=== PATIENT | female | born 1945 | race Caucasian/White ===

== ENCOUNTER 2020-03-20 10:10 | Emergency (ER) | payer MEDICARE, SELFPAY ==
[2020-03-20 10:23] VITALS: BP 121/58; PULSE 72; RESP 18; TEMP 36.4; O2SAT 94; BMI 27.6
--- NOTE | 2020-03-20 11:59 | ED.ABDPAIN ---
HPI - Abdominal Pain General Chief Complaint: Abdominal Pain Stated Complaint: side pain Time Seen by Provider: 03/20/20 11:59 Source: patient Mode of arrival: ambulatory Limitations: no limitations History of Present Illness HPI narrative: This is a 74-year-old female with past medical history significant for coronary artery disease, status post aortic valve replacement, status post coronary artery bypass graft, hypothyroidism, status post aortic aneurysm repair who has a pacemaker, diverticular disease with history of GI bleeds presents with complaint of right-sided abdominal pain ongoing for past 2 days. States feels similar to prior diverticular infection states she want to come in earlier to catch her ?early?. States in the past she has had GI bleeds with this however she does not have any bleeding, dark/black stools. Related Data Previous Rx's Medication Instructions Recorded amoxicillin-pot clavulanate 1 tab PO Q12H #14 tab 03/20/20 [Augmentin] Allergies Allergy/AdvReac Type Severity Reaction Status Date / Time Iodinated Contrast Media Allergy Intermediate COUGH Unverified 12/10/19 16:07 [IVP DYE] oxycodone [OXYCODONE] AdvReac Mild DIZZINESS Unverified 12/10/19 16:07 Review of Systems Review of Systems Constitutional: No Weight loss, No Fever, No Chills, No Night Sweats, No Fatigue, No Malaise ENT/Mouth: No Hearing loss, No Ear Pain, No Nasal Congestion, No Sinus Pain, No Hoarseness, No sore throat, No Rhinorrhea, No Swallowing Difficulty Eyes: No Eye Pain, No Swelling, No Redness, No Foreign Body, No Discharge, No Vision Changes Cardiovascular: No Chest Pain, No SOB, No Dyspnea on Exertion, No Orthopnea, No Edema, No Palpitations Respiratory: No Cough, No Sputum, No Wheezing, No Smoke Exposure, No Dyspnea Gastrointestinal: No Nausea, No Vomiting, No Diarrhea, No Constipation, + abdominal Pain, No Hematochezia, No Melena Genitourinary: no irregular bleeding, No Dysuria, No Urinary Frequency, No Hematuria, No Urinary Incontinence, No Urgency, No Flank Pain Musculoskeletal: No joint pain, No Myalgias, No Joint Swelling Skin: No Skin Lesions, No rash Neuro: No Weakness, No Numbness, No Paresthesias, No Loss of Consciousness, No Dizziness, No Headache Psych: No Social Issues Heme/Lymph: No Bruising, No Bleeding,No Lymphadenopathy Endocrine: No Polyuria, No Polydipsia, No Temperature Intolerance Yes all other systems are reviewed and are negative Physical Exam Vital Signs: Vital Signs: Last Vital Signs Temp 97.5 F 03/20/20 10:23 Pulse 72 03/20/20 10:23 Resp 16 03/20/20 16:15 BP 121/58 L 03/20/20 10:23 Pulse Ox 94 03/20/20 10:23 Body Mass Index 27.6 Reviewed Const: General: cooperative and healthy appearing; No acute distress or intoxicated appearing Nutritional Appearance: average body habitus Orientation/consciousness: patient oriented x3 HENMT: Head: Yes normal to inspection Ears: hearing grossly normal bilaterally Eyes: General: appearance normal, both eyes and all related structures Visual Torres: normal visual torres by confrontation Neck: Neck: Yes normal visual inspection, No positive Brudzinski's sign, No positive Kernig's sign and No tender Thyroid: Thyroid normal Chest: Chest palpation & inspection: normal inspection of the chest Resp: Effort & Inspection: normal respiratory effort Auscultation: clear to auscultation bilaterally Cardio: Jugular venous distension: no JVD Rhythm: regular rhythm Heart sounds: S1 normal heart sound present and S2 normal heart sound present GI: Inspection: Yes normal to inspection Percussion: Yes normal to percussion Auscultation: normal bowel sounds : General: Yes no CVA tenderness Back/Spine/Pelvis: Back: no CVA tenderness Skin: General skin exam: no rashes or lesions noted Neuro: General: patient oriented x3 Extrem: General: Yes normal to inspection Course Course Course Narrative: Labs show stable H&H. Electrolytes without significant abnormality. Initial lactic acid was 3.5 this is likely secondary to draw air as repeat was within normal limits. CTA of the abdomen did not show any change of the prior abdominal aneurysm. Diverticulosis without diverticulitis. Given her pain question early is requesting antibiotics for home. Will go ahead and give her 7 days of Augmentin with close outpatient follow-up. Patient will nontoxic appearing. Abdominal exam is reassuring. Will be discharged with precautions follow up instructions. Stable for discharge. MDM - Abdominal Pain MDM Narrative Medical decision making narrative: Will check labs, UA, occult stool and check for COVID-19. Given her complicated history will do CT scan of the abdomen and pelvis. Differential Diagnosis Differential diagnosis: Likely abdominal pain, aortic dissection and diverticulitis; Unlikely acute appendicitis, bowel perforation, calculus of kidney, constipation, endometriosis, gastroenteritis, mesenteric ischemia, ovarian cyst, pancreatitis, peptic ulcer disease, renal colic and small bowel obstruction Medical Records Attestation: I reviewed the patient's medical records. Medical records narrative: HPI from previous admission as well as discharge reviewed from 06/25/2019 Safe discharge diagnosis aortic dissection thracoabdominal, diverticulosis, colitis, lower GI bleed, supratherapeutic INR. Lab Data Attestation: I reviewed the patient's lab results. Result diagrams: 03/20/20 12:16 03/20/20 12:16 Labs: Lab Results 03/20/20 03/20/20 03/20/20 Range/Units 12:16 12:16 12:16 WBC 10.7 (4.8-10.8) X10*3/uL RBC 4.40 (4.20-5.50) X10*6/uL Hgb 11.6 L (12.0-16.0) g/dl Hct 38.0 (37-47) % MCV 86.4 (80-98) fL MCH 26.4 L (27.0-33.0) pg MCHC 30.5 L (31.0-35.0) g/dl RDW 15.6 (11.0-16.0) % Plt Count 264 (160-400) X10*3/uL MPV 9.4 (9.4-12.3) fL Immature Gran % (Auto) 0.4 (0.0-0.4) % Neut % (Auto) 69.9 (45-73) % Lymph % (Auto) 22.3 (20-40) % [place] % (Auto) 6.3 (2-11) % Eos % (Auto) 0.8 (0-4) % Baso % (Auto) 0.3 (0-2) % Lymph # (Auto) 2.4 (1.2-4.9) X10*3/uL [place] # (Auto) 0.7 (0.1-1.2) X10*3/uL Eos # (Auto) 0.1 (0.0-0.4) X10*3/uL Baso # (Auto) 0.0 (0.0-0.2) X10*3/uL Abs Immat Gran (auto) 0.04 H (0.00-0.03) X10*3/uL Absolute Neuts (auto) 7.5 (2.0-8.3) X10*3/uL Absolute Nucleated RBC 0.000 (0.0-0.012) X10*3/uL Nucleated RBC % (auto) 0.0 (0.0-0.2) /100WBC PT 35.2 H (10.8-13.0) SEC INR 2.9 H (0.9-1.1) APTT 42.5 H (24.1-38.0) SEC Sodium 140 (135-145) mmol/L Potassium 4.5 (3.3-5.1) mmol/l Chloride 100 (96-108) mmol/L Carbon Dioxide 28 (22-29) mmol/L Anion Gap 17 (12-20) BUN 16 (9-16) mg/dL Creatinine 0.93 (0.5-1.4) mg/dL Estim Creat Clear Calc 58.0 Estimated GFR 59 Random Glucose 114 (60-115) mg/dL Lactic Acid (0.5-2.0) mmol/L Lactic Acid Fup @ 2Hr (0.5-2.0) mmol/L Calcium 9.2 (8.4-10.2) mg/dL Total Bilirubin 0.4 (0.0-1.0) mg/dL AST 21 (5-31) U/L ALT 14 (0-31) U/L Alkaline Phosphatase 71 (39-117) U/L Total Protein 7.4 (6.5-8.0) g/dL Albumin 4.2 (3.5-5.0) g/dL Urine Color Urine Appearance Urine pH (5.0-8.0) Ur Specific [place] (1.005-1.025) Urine Protein (NEG-TRACE) MG/DL Urine Glucose (UA) (NEG) MG/DL Urine Ketones (NEG) MG/DL Urine Blood (NEG) Urine Nitrite (NEG) Ur Leukocyte Esterase (NEG) Urine RBC (0) /HPF Urine WBC (0-4) /HPF Ur Squamous Epith Cells /LPF Urine Bacteria /LPF Coronavirus (PCR) (Negative) Influenza Type A (PCR) (Negative) Influenza Type B (PCR) (Negative) RSV RNA Qual (PCR) (Negative) 03/20/20 03/20/20 03/20/20 Range/Units 12:16 12:16 16:18 WBC (4.8-10.8) X10*3/uL RBC (4.20-5.50) X10*6/uL Hgb (12.0-16.0) g/dl Hct (37-47) % MCV (80-98) fL MCH (27.0-33.0) pg MCHC (31.0-35.0) g/dl RDW (11.0-16.0) % Plt Count (160-400) X10*3/uL MPV (9.4-12.3) fL Immature Gran % (Auto) (0.0-0.4) % Neut % (Auto) (45-73) % Lymph % (Auto) (20-40) % [place] % (Auto) (2-11) % Eos % (Auto) (0-4) % Baso % (Auto) (0-2) % Lymph # (Auto) (1.2-4.9) X10*3/uL [place] # (Auto) (0.1-1.2) X10*3/uL Eos # (Auto) (0.0-0.4) X10*3/uL Baso # (Auto) (0.0-0.2) X10*3/uL Abs Immat Gran (auto) (0.00-0.03) X10*3/uL Absolute Neuts (auto) (2.0-8.3) X10*3/uL Absolute Nucleated RBC (0.0-0.012) X10*3/uL Nucleated RBC % (auto) (0.0-0.2) /100WBC PT (10.8-13.0) SEC INR (0.9-1.1) APTT (24.1-38.0) SEC Sodium (135-145) mmol/L Potassium (3.3-5.1) mmol/l Chloride (96-108) mmol/L Carbon Dioxide (22-29) mmol/L Anion Gap (12-20) BUN (9-16) mg/dL Creatinine (0.5-1.4) mg/dL Estim Creat Clear Calc Estimated GFR Random Glucose (60-115) mg/dL Lactic Acid 3.5 H* (0.5-2.0) mmol/L Lactic Acid Fup @ 2Hr 1.6 (0.5-2.0) mmol/L Calcium (8.4-10.2) mg/dL Total Bilirubin (0.0-1.0) mg/dL AST (5-31) U/L ALT (0-31) U/L Alkaline Phosphatase (39-117) U/L Total Protein (6.5-8.0) g/dL Albumin (3.5-5.0) g/dL Urine Color Urine Appearance Urine pH (5.0-8.0) Ur Specific [place] (1.005-1.025) Urine Protein (NEG-TRACE) MG/DL Urine Glucose (UA) (NEG) MG/DL Urine Ketones (NEG) MG/DL Urine Blood (NEG) Urine Nitrite (NEG) Ur Leukocyte Esterase (NEG) Urine RBC (0) /HPF Urine WBC (0-4) /HPF Ur Squamous Epith Cells /LPF Urine Bacteria /LPF Coronavirus (PCR) NEGATIVE (Negative) Influenza Type A (PCR) NEGATIVE (Negative) Influenza Type B (PCR) NEGATIVE (Negative) RSV RNA Qual (PCR) NEGATIVE (Negative) 03/20/20 Range/Units 16:19 WBC (4.8-10.8) X10*3/uL RBC (4.20-5.50) X10*6/uL Hgb (12.0-16.0) g/dl Hct (37-47) % MCV (80-98) fL MCH (27.0-33.0) pg MCHC (31.0-35.0) g/dl RDW (11.0-16.0) % Plt Count (160-400) X10*3/uL MPV (9.4-12.3) fL Immature Gran % (Auto) (0.0-0.4) % Neut % (Auto) (45-73) % Lymph % (Auto) (20-40) % [place] % (Auto) (2-11) % Eos % (Auto) (0-4) % Baso % (Auto) (0-2) % Lymph # (Auto) (1.2-4.9) X10*3/uL [place] # (Auto) (0.1-1.2) X10*3/uL Eos # (Auto) (0.0-0.4) X10*3/uL Baso # (Auto) (0.0-0.2) X10*3/uL Abs Immat Gran (auto) (0.00-0.03) X10*3/uL Absolute Neuts (auto) (2.0-8.3) X10*3/uL Absolute Nucleated RBC (0.0-0.012) X10*3/uL Nucleated RBC % (auto) (0.0-0.2) /100WBC PT (10.8-13.0) SEC INR (0.9-1.1) APTT (24.1-38.0) SEC Sodium (135-145) mmol/L Potassium (3.3-5.1) mmol/l Chloride (96-108) mmol/L Carbon Dioxide (22-29) mmol/L Anion Gap (12-20) BUN (9-16) mg/dL Creatinine (0.5-1.4) mg/dL Estim Creat Clear Calc Estimated GFR Random Glucose (60-115) mg/dL Lactic Acid (0.5-2.0) mmol/L Lactic Acid Fup @ 2Hr (0.5-2.0) mmol/L Calcium (8.4-10.2) mg/dL Total Bilirubin (0.0-1.0) mg/dL AST (5-31) U/L ALT (0-31) U/L Alkaline Phosphatase (39-117) U/L Total Protein (6.5-8.0) g/dL Albumin (3.5-5.0) g/dL Urine Color YELLOW Urine Appearance CLEAR Urine pH 6.5 (5.0-8.0) Ur Specific [place] <= 1.005 (1.005-1.025) Urine Protein NEG (NEG-TRACE) MG/DL Urine Glucose (UA) NEG (NEG) MG/DL Urine Ketones 15 (NEG) MG/DL Urine Blood 1+ H (NEG) Urine Nitrite NEG (NEG) Ur Leukocyte Esterase NEG (NEG) Urine RBC 0-2 (0) /HPF Urine WBC 0 (0-4) /HPF Ur Squamous Epith Cells NONE /LPF Urine Bacteria NONE /LPF Coronavirus (PCR) (Negative) Influenza Type A (PCR) (Negative) Influenza Type B (PCR) (Negative) RSV RNA Qual (PCR) (Negative) Discharge Plan Discharge Clinical Impression: Diverticulosis Patient Disposition: Home, Self-Care Instructions: Diverticulosis (ED), Diverticulitis Diet (ED) Additional Instructions: Drink plenty fluids [place] diet Take medication prescribed Return if any concerns or worsening symptoms as discussed including worsening abdominal pain, fever, black or tarry stools or blood in the stools Otherwise follow up with the GI doctor at [facility] as discussed Thank you Prescriptions: New amoxicillin-pot clavulanate [Augmentin] 875-125 mg tablet 1 tab PO Q12H Qty: 14 RF: 0 Referrals: ED Physician,Generic [Physician] - 1 week ([facility] [place]) Interventions: ED Discharge Assessment Last Done: 03/20/20 18:07 Discharge Date/Time: 03/20/20 18:11 [facility] Social History Social History Alcohol intake: never Smoked in Last 30 Days: No Use of substances other than those prescribed or required for medical reasons: No Advance Directives: No Advance Directives Information Provided: Yes
--- NOTE | 2020-03-20 12:04 | CT_ITS ---
EXAMINATION: CT ANGIOGRAM ABDOMEN AND PELVIS CLINICAL INFORMATION: Abdominal pain. History of AAA COMPARISON: None TECHNIQUE: Multiple axial images were obtained through the abdomen and pelvis following the administration of 100 mL of Omnipaque 350 intravenous contrast. Images were reviewed on a dedicated 3-D workstation. This CT examination was performed using dose optimization techniques as appropriate, variously including the following: *Automated exposure control *Adjustment of mA and/or kV according to patient size (this includes techniques or standardized protocols for targeted exams where dose is matched to indication/reason for exam; i.e. extremities or head) *Use of iterative reconstruction technique DLP: 591 mGy-cm FINDINGS: NONVASCULAR: Hyperinflated bilateral lung bases seen. The heart size is normal. There are pacer electrodes in right atrium and right ventricle. The liver is normal size, shape and density. There is a 1.2 cm hypodensity right hepatic lobe tip on axial image 50/7. Previously it measured 1.2 cm. No focal lesion or intrahepatic ductal is seen. The gallbladder is normal caliber. Visualized pancreas, spleen and bilateral adrenal glands are unremarkable. There is a large exophytic cyst upper pole right kidney measuring 6.1 cm. Punctate 5 mm cortical-based cyst upper pole left kidney is noted. No radiopaque renal calculi or hydronephrosis seen. No abnormal size retroperitoneal lymph nodes seen. Diffuse colonic diverticulosis with mild mural thickening involving the cecum and the ascending colon but no pericolic fat stranding seen. The ileocecal junction is normal. The appendix is normal caliber. No free air or free fluid. Imaging through the pelvis reveals a midline anteverted uterus. No free fluid or adnexal mass seen. The urinary bladder is nondistended. There are degenerative disc changes L5-S1 from L1-L2 and lower thoracic disc levels with spondylosis and vacuum disc phenomena. No lytic process or fracture seen. VASCULAR: There is aortic dissection from the distal abdominal aorta into the proximal abdominal aorta with large amount of thrombus in the false lumen. The patent lumen continues into the distal abdominal aorta aerated there is normal patency of celiac, superior mesenteric artery arising from the true lumen with mild atherosclerotic calcified plaque at the origin of both these arteries. Mild atherosclerotic calcification of the mid and distal abdominal aorta is noted inferior mesenteric artery is patent. There are solitary renal arteries arising from the true lumen. Both common iliac, extending into the iliac arteries are widely patent. CT/CT angio abdomen pelvis IMPRESSION: There is a known distal thoracic dissection extending into the mid abdomen with circumferential thrombus and within the distal descending aorta aortic false lumen. The false lumen is opacified in the upper abdominal aorta same size as before. The true lumen supplies the entire abdominal aorta vasculature including kidneys and are widely patent. Diffuse colonic diverticulosis without diverticulitis. There is nonspecific mural thickening cecum and proximal descending colon. Appendix is normal. Bilateral renal cysts. No radiopaque renal calculi or hydronephrosis. Large hiatal hernia and peritoneal fat within the herniated sac. 1.2 cm hypodensity right hepatic lobe at the tip, stable
[2020-03-20 12:25] LABS: Basophils Percent Auto 0.3 % (0-2); Eosinophils Absolute Auto 0.1 X10*3/uL (0.0-0.4); Eosinophils Percent Auto 0.8 % (0-4); Hemoglobin 11.6 g/dl (12.0-16.0); Imm Gran Abs Auto 0.04 X10*3/uL (0.00-0.03); Imm Gran Pct Auto 0.4 % (0.0-0.4); Lymphocytes Absolute Auto 2.4 X10*3/uL (1.2-4.9); Lymphocytes Percent Auto 22.3 % (20-40); MANUAL DIFF FLAG NO; Mean Corpuscular HGB Conc 30.5 g/dl (31.0-35.0); Mean Corpuscular Hemoglobin 26.4 pg (27.0-33.0); Mean Corpuscular Volume 86.4 fL (80-98); Mean Platelet Volume 9.4 fL (9.4-12.3); Monocytes Absolute Auto 0.7 X10*3/uL (0.1-1.2); Monocytes Percent Auto 6.3 % (2-11); Neutrophils Absolute Auto 7.5 X10*3/uL (2.0-8.3); Neutrophils Percent Auto 69.9 % (45-73); Platelet Count 264 X10*3/uL (160-400); Red Cell Distribution Width 15.6 % (11.0-16.0); White Blood Count 10.7 X10*3/uL (4.8-10.8)
[2020-03-20 12:32] LABS: INTERNATIONAL NORM RATIO 2.9 (0.9-1.1); Prothrombin Time 35.2 SEC (10.8-13.0)
[2020-03-20 12:34] LABS: Partial Thromboplastin Time 42.5 SEC (24.1-38.0)
[2020-03-20 12:55] LABS: Lactic Acid 3.5 mmol/L (0.5-2.0)
[2020-03-20 13:00] LABS: Alanine Aminotransferase 14 U/L (0-31); Albumin Level 4.2 g/dL (3.5-5.0); Alkaline Phosphatase 71 U/L (39-117); Anion Gap 17 (12-20); Aspartate Amino Transferase 21 U/L (5-31); Bilirubin Total 0.4 mg/dL (0.0-1.0); Blood Urea Nitrogen 16 mg/dL (9-16); Calcium 9.2 mg/dL (8.4-10.2); Carbon Dioxide 28 mmol/L (22-29); Chloride 100 mmol/L (96-108); Estimated Glomerular Filt Rate 59; Glucose Random 114 mg/dL (60-115); Potassium 4.5 mmol/l (3.3-5.1); Sodium 140 mmol/L (135-145); Total Protein 7.4 g/dL (6.5-8.0)
[2020-03-20 13:10] LABS: Influenza A PCR NEGATIVE (Negative); Influenza B PCR NEGATIVE (Negative); Resp Syncy Virus RNA Qual PCR NEGATIVE (Negative); SARS COV2 PCR INHOUSE NEGATIVE (Negative)
[2020-03-20] MEDS: diphenhydrAMINE HCL 50 MG/ML VIAL 25 MG IVPUSH (13:32)
[2020-03-20 14:00] VITALS: RESP 16
[2020-03-20 14:22] LABS: Reflex Lactate? Lactic Acid Added
[2020-03-20] MEDS: iohexoL 350 MG/ML 100 ML INFUS..BTL 70 ML IV (14:27)
[2020-03-20] MEDS: 0.9 % Sodium Chloride 1,000 ML 999 ML IV (15:52)
[2020-03-20 16:15] VITALS: RESP 16
[2020-03-20 16:28] LABS: Glucose Urine UA NEG (NEG); Leukocyte Esterase Urine NEG (NEG); Nitrite Urine NEG (NEG); PH 6.5 (5.0-8.0); Specific Gravity - Urine <= 1.005 (1.005-1.025); Urine Blood 1+ (NEG); Urine Ketones 15 MG/DL (NEG); Urine Protein NEG (NEG-TRACE)
[2020-03-20 16:40] LABS: Appearance Urine CLEAR; Color Urine YELLOW
[2020-03-20 16:48] LABS: RBC Urine 0-2 /HPF (0); WBC Urine 0 /HPF (0-4)
[2020-03-20 16:55] LABS: ~Lactic Acid-LAB USE ONLY 1.6 mmol/L (0.5-2.0)
== END 2020-03-20 18:11 | disposition home or self-care (01) ==
PROVIDERS: Nurse Practitioner Primary Care; Emergency Provider Emergency Medicine
DX: K57.30 Diverticulosis of large intestine without perforation or abscess without bleeding (principal); R10.9 Unspecified abdominal pain; Z79.899 Other long term (current) drug therapy
CPT/HCPCS: 0241U; 36415; 74174; 80053; 81001; 83605; 85025; 85610; 85730; 96361; 96374; 99284; J1200; Q9967

== ENCOUNTER 2020-11-02 10:59 | Outpatient (REF) | payer MEDICARE, SELFPAY ==
[2020-11-02 13:34] LABS: MANUAL DIFF FLAG NO
[2020-11-02 13:37] LABS: Basophils Percent Auto 0.5 % (0-2); Eosinophils Absolute Auto 0.1 X10*3/uL (0.0-0.4); Eosinophils Percent Auto 2.1 % (0-4); Hematocrit 35.7 % (37-47); Hemoglobin 11.2 g/dl (12.0-16.0); Imm Gran Abs Auto 0.02 X10*3/uL (0.00-0.03); Imm Gran Pct Auto 0.3 % (0.0-0.4); Lymphocytes Absolute Auto 1.5 X10*3/uL (1.2-4.9); Lymphocytes Percent Auto 25.9 % (20-40); Mean Corpuscular HGB Conc 31.4 g/dl (31.0-35.0); Mean Corpuscular Hemoglobin 27.2 pg (27.0-33.0); Mean Corpuscular Volume 86.7 fL (80-98); Mean Platelet Volume 9.8 fL (9.4-12.3); Monocytes Absolute Auto 0.4 X10*3/uL (0.1-1.2); Neutrophils Absolute Auto 3.7 X10*3/uL (2.0-8.3); Neutrophils Percent Auto 64.2 % (45-73); Platelet Count 271 X10*3/uL (160-400); Red Blood Count 4.12 X10*6/uL (4.20-5.50); Red Cell Distribution Width 15.8 % (11.0-16.0); White Blood Count 5.8 X10*3/uL (4.8-10.8)
[2020-11-02 13:42] LABS: Prothrombin Time 34.9 SEC (9.9-13.0)
[2020-11-02 14:19] LABS: Anion Gap 12 (12-20); Blood Urea Nitrogen 17 mg/dL (9-16); Calcium 9.3 mg/dL (8.4-10.2); Carbon Dioxide 28 mmol/L (22-29); Chloride 104 mmol/L (96-108); Estimated Glomerular Filt Rate 59; Glucose Random 100 mg/dL (60-115); Potassium 4.3 mmol/L (3.3-5.1); Sodium 140 mmol/L (135-145)
[2020-11-02 14:30] LABS: Uric Acid 5.5 mg/dL (2.4-5.7)
== END 2020-11-02 11:00 | disposition home or self-care (01) ==
LOC: HO.WFDLDS 10:59
PROVIDERS: Visit Provider Family Medicine
DX: Z00.00 Encounter for general adult medical examination without abnormal findings (principal); L03.116 Cellulitis of left lower limb; M79.675 Pain in left toe(s); Z95.2 Presence of prosthetic heart valve
CPT/HCPCS: 36415; 80048; 84550; 85025; 85610

== ENCOUNTER 2021-02-07 09:40 | Emergency (ER) | payer MEDICARE, SELFPAY ==
--- NOTE | ~2021-02-07 | US_ITS ---
EXAMINATION: US ABDOMEN LIMITED CLINICAL INFORMATION: Right upper quadrant pain. Concern for biliary disease.. COMPARISON: CT scan abdomen pelvis 02/07/2021 TECHNIQUE: Real-time imaging of the right upper quadrant abdominal viscera. Color Doppler exam used. FINDINGS: PANCREAS: Portions of the head and neck of pancreas are visualized. The tail is obscured by bowel gas. No acute change of the head or body of the pancreas. No pancreatic duct dilatation. LIVER: Normal. The liver is normal in size. The liver contour is normal. Parenchymal echogenicity is normal. No focal hepatic lesion. There is no intrahepatic biliary duct dilatation seen. GALLBLADDER: Normal. The gallbladder is physiologically distended without evidence of stones, sludge, polyps, wall thickening or pericholecystic fluid. COMMON BILE DUCT: Normal in caliber measuring 0.7 cm in diameter. RIGHT KIDNEY: Anechoic cyst upper pole of the kidney measuring 6 cm. Exophytic 1.8 cm anechoic cyst at lower pole. No follow-up imaging is recommended for simple renal cyst. There is a nonobstructive 0.8 cm stone at the midpole. There is no hydronephrosis. The kidney measures 12.9 cm in maximum dimension. FREE FLUID: None. US/US abdomen limited IMPRESSION: 1. No acute abnormality. No gallstone or acute change of gallbladder wall. No bile duct dilatation. 2. Nonobstructive 8 mm stone mid pole right kidney. No hydronephrosis.
--- NOTE | ~2021-02-07 | CT_ITS ---
EXAMINATION: CT ABDOMEN AND PELVIS WITHOUT CONTRAST CLINICAL INFORMATION: Right-sided abdominal pain for 4 days. Rule out biliary disease or appendicitis. COMPARISON: Previous CTA of the abdomen and pelvis, most recent February [address] TECHNIQUE: Multidetector volumetric imaging was performed from the superior aspect of the liver through the pubic symphysis. Sagittal and coronal reformatted images were obtained on the technologist's workstation. This CT examination was performed using dose optimization techniques as appropriate, variously including the following: *Automated exposure control *Adjustment of mA and/or kV according to patient size (this includes techniques or standardized protocols for targeted exams where dose is matched to indication/reason for exam; i.e. extremities or head) *Use of iterative reconstruction technique DLP: 711 mGy-cm FINDINGS: LUNG BASES: There is scarring or chronic subsegmental atelectasis in the medial right lower lobe. This appears unchanged. The lung bases are otherwise clear. LIVER, GALLBLADDER, AND BILIARY TREE: The liver is normal in size, shape, and attenuation. There is a small 1 cm lesion in the medial segment of the left lobe of the liver near the gallbladder axial image 32 series 5 that is stable and probably represents a cyst. No other focal liver lesion is seen. No biliary ductal dilatation is present. There is dependent increased attenuation in the gallbladder questionable for tiny layering gallstones or sludge. The gallbladder is otherwise normal. No PANCREAS: Unremarkable. SPLEEN: Unremarkable. ADRENAL GLANDS: Unremarkable. KIDNEYS AND URETERS: There are 2 right renal cyst. The largest measures 6 cm in the upper pole. These are stable. No imaging follow-up needed. The kidneys are otherwise normal. BLADDER: Unremarkable. GASTROINTESTINAL TRACT: There is diverticulosis of the colon. No evidence of diverticulitis is seen. Small and large bowel is otherwise unremarkable. The appendix is normal. There is a large intrathoracic stomach or esophageal hernia. This appears unchanged. ABDOMINAL WALL: There are small umbilical and bilateral inguinal hernias containing fat. LYMPH NODES: Normal. VASCULAR: There is a old calcified dissection flap. Similar to previous CTA February 2020. The lower thoracic aorta is tortuous and slightly dilated measuring 4 cm in diameter. The proximal abdominal aorta is upper normal in size measuring 3 cm. This is unchanged as well. There is mild ectasia of the iliac arteries. PELVIC VISCERA: Unremarkable. OSSEOUS STRUCTURES: There is scoliosis and degenerative changes of the spine. No fracture is seen. CT/CT abdomen pelvis wo con IMPRESSION: Dependent increased attenuation in the gallbladder questionable for tiny stones or sludge. The gallbladder is otherwise normal. There is no biliary duct dilatation. Diverticulosis of the colon. No evidence of diverticulitis. Normal appendix. Large esophageal hernia or intrathoracic stomach similar to previous exams. Severe atherosclerotic disease. 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 This appears unchanged. Stable right renal and liver cysts.
[2021-02-07 11:53] VITALS: BP 177/77; PULSE 71; RESP 18; TEMP 36; O2SAT 96; BMI 35.5
[2021-02-07 13:34] LABS: MANUAL DIFF FLAG NO
[2021-02-07 13:35] LABS: Basophils Percent Auto 0.3 % (0-2); Eosinophils Percent Auto 0.7 % (0-4); Hematocrit 36.6 % (37.0-47.0); Hemoglobin 11.8 g/dl (12.0-16.0); Imm Gran Abs Auto 0.01 X10*3/uL (0.00-0.03); Imm Gran Pct Auto 0.2 % (0.0-0.4); Lymphocytes Absolute Auto 1.8 X10*3/uL (1.2-4.9); Lymphocytes Percent Auto 31.6 % (20-40); Mean Corpuscular HGB Conc 32.2 g/dl (31.0-35.0); Mean Corpuscular Volume 86.9 fL (80.0-98.0); Mean Platelet Volume 9.1 fL (9.4-12.3); Monocytes Absolute Auto 0.4 X10*3/uL (0.1-1.2); Monocytes Percent Auto 6.9 % (2-11); Neutrophils Absolute Auto 3.5 x10*3/uL (2.0-8.3); Neutrophils Percent Auto 60.3 % (45-73); Platelet Count 231 X10*3/uL (160-400); Red Blood Count 4.21 X10*6/uL (4.20-5.50); Red Cell Distribution Width 15.2 % (11.0-16.0); White Blood Count 5.8 X10*3/uL (4.8-10.8)
--- NOTE | 2021-02-07 13:41 | ED.ABDPAIN ---
HPI - Abdominal Pain General Chief Complaint: Abdominal Pain Stated Complaint: Abd pain Time Seen by Provider: 02/07/21 13:27 Source: patient Mode of arrival: ambulatory Limitations: no limitations History of Present Illness HPI narrative: Who presents emergency department for evaluation of abdominal pain x4 days. She states the pain came on gradually, initially was intermittent and is now constant. She points to her right upper quadrant and right lower quadrant when asked to localize the pain. Describes the pain as a bloated gassy sensation which is 4/10 at its worst. She states she is moving her bowels daily and that her bowel movements are normal. She has had associated nausea with no vomiting. She denied fever, chills, chest pain, shortness of breath, cough, frequency, urgency or dysuria. She states she has had a good appetite and she is able to eat without exacerbating the pain. This is her 1st episode of this type of pain. The patient does have a [employer] Stefan's aortic valve and she states that she takes Coumadin. Related Data Home Medications Medication Instructions Recorded Confirmed fluticasone 250 mcg-salmeterol 50 1 ea INHALATION BID 10/17/20 mcg/dose blistr powdr for inhalation levothyroxine 50 mcg tablet 50 mcg PO DAILY 10/17/20 metoprolol tartrate 25 mg tablet 25 mg PO BID 10/17/20 omeprazole 20 mg capsule,delayed 20 mg PO DAILY 10/17/20 release simvastatin 20 mg tablet 20 mg PO BEDTIME 10/17/20 verapamil 240 mg tablet,extended 240 mg PO DAILY 10/17/20 release Previous Rx's Medication Instructions Recorded amoxicillin 875 mg-potassium 1 tab PO Q12H #14 tab 03/20/20 clavulanate 125 mg tablet (Augmentin) cephalexin 500 mg capsule 500 mg PO Q12H 10 Days #20 cap 11/02/20 Allergies Allergy/AdvReac Type Severity Reaction Status Date / Time Iodinated Contrast Media Allergy Intermediate COUGH Verified 11/02/20 10:38 [IVP DYE] oxycodone [OXYCODONE] AdvReac Mild DIZZINESS Verified 11/02/20 10:38 Review of Systems Review of Systems Yes all other systems are reviewed and are negative Physical Exam Vital Signs: Vital Signs: Last Vital Signs Temp 98.0 F 02/07/21 14:00 Pulse 70 02/07/21 14:00 Resp 18 02/07/21 14:00 BP 185/76 H 02/07/21 14:00 Pulse Ox 97 02/07/21 14:00 Body Mass Index 35.5 Const: General: cooperative and no acute distress Orientation/consciousness: oriented to person and oriented to place Limitations: no limitations HENMT: Head: Yes normal to inspection, Yes normocephalic and Yes atraumatic Ears: external ears normal General nose exam: Normal external nose present Face and sinus: Yes normal facial exam Mouth: Normal oral and palatal mucosa present Throat: Yes posterior oropharynx normal Eyes: General: appearance normal, both eyes and all related structures Pupils: Equal, round and reactive pupils present Neck: Neck: Yes normal visual inspection, Yes no lymphadenopathy, Yes trachea midline and Yes supple Chest: Chest palpation & inspection: normal inspection of the chest and normal palpation of entire chest wall Resp: Effort & Inspection: normal respiratory effort and able to speak in complete sentences Auscultation: clear to auscultation bilaterally Cardio: Rate: regular rate Rhythm: regular rhythm Heart sounds: S1 normal heart sound present, S2 normal heart sound present and no murmurs GI: Inspection: Yes normal to inspection Palpation (GI): Soft to palpation, Tenderness to palpation present (GI) in the RLQ (moderate) and in the RUQ (moderate) and no guarding Auscultation: normal bowel sounds : General: Yes no CVA tenderness Back/Spine/Pelvis: Back: no CVA tenderness Skin: General skin exam: no rashes or lesions noted Neuro: General: oriented to person and oriented to place Cranial nerves: Yes CN's II-XII intact bilaterally and Yes Equal, round and reactive pupils present Cognition (Neuro): normal cognition Motor exam (neuro): 5/5 motor strength present throughout Extrem: General: Yes normal to inspection Psych: Appearance: grossly normal Speech and movement: Normal speech and movement present Affect: normal affect Attitude: cooperative Thought process: Normal thought process present Thought content: Normal thought content present Course Course Course Narrative: 75-year-old female who presents emergency department for evaluation of right-sided abdominal pain x4 days. Vital signs revealed an elevated blood pressure of 177/77 otherwise were unremarkable. Physical examination did reveal right upper quadrant right lower quadrant abdominal tenderness. Differential includes was not limited to biliary disease, pancreatitis, appendicitis, bowel obstruction. I ordered a CBC, CMP, lipase, PT/INR, PTT and urinalysis. CT scan of the abdomen pelvis without IV contrast will be obtained as well. Patient does not want any pain medications at this time. 1657: Laboratory evaluation: Mild anemia with an H&H of 11.8 and 36.6. Platelet count was normal. PT and INR elevated at 41.5 and 3.6, the patient does take warfarin. PTT is elevated at 51.4. CMP was normal. Lipase was normal. CT scan of the abdomen pelvis without IV contrast was significant for dependent increased attenuation in the gallbladder questionable for tiny layering gallstones or sludge. The gallbladder is otherwise normal, no biliary ductal dilatation was seen. I did re-evaluate the patient. She states that she is not having any pain however she does continue to have right upper quadrant tenderness with no right lower quadrant tenderness. I ordered a limited ultrasound of the patient's gallbladder to see if the patient has acute cholecystitis is the cause of her pain. At the end of my shift, the patient's care was turned over to my colleague, Dr. Natalee Rodríguez. The patient does not want any pain medications. MDM - Abdominal Pain Lab Data Result diagrams: 02/07/21 13:29 02/07/21 13:29 Labs: Lab Results 02/07/21 02/07/21 02/07/21 Range/Units 13:29 13:29 14:02 WBC 5.8 (4.8-10.8) X10*3/uL RBC 4.21 (4.20-5.50) X10*6/uL Hgb 11.8 L (12.0-16.0) g/dl Hct 36.6 L (37.0-47.0) % MCV 86.9 (80.0-98.0) fL MCH 28.0 (27.0-33.0) pg MCHC 32.2 (31.0-35.0) g/dl RDW 15.2 (11.0-16.0) % Plt Count 231 (160-400) X10*3/uL MPV 9.1 L (9.4-12.3) fL Immature Gran % (Auto) 0.2 (0.0-0.4) % Neut % (Auto) 60.3 (45-73) % Lymph % (Auto) 31.6 (20-40) % Crockett % (Auto) 6.9 (2-11) % Eos % (Auto) 0.7 (0-4) % Baso % (Auto) 0.3 (0-2) % Lymph # (Auto) 1.8 (1.2-4.9) X10*3/uL Crockett # (Auto) 0.4 (0.1-1.2) X10*3/uL Eos # (Auto) 0.0 (0.0-0.4) X10*3/uL Baso # (Auto) 0.0 (0.0-0.2) X10*3/uL Abs Immat Gran (auto) 0.01 (0.00-0.03) X10*3/uL Absolute Neuts (auto) 3.5 (2.0-8.3) x10*3/uL Absolute Nucleated RBC 0.000 (0.0-0.012) X10*3/uL Nucleated RBC % (auto) 0.0 (0.0-0.2) /100WBC PT (9.9-13.0) SEC INR (0.9-1.1) APTT (24.1-38.0) SEC Sodium 139 (135-145) mmol/L Potassium 4.2 (3.3-5.1) mmol/L Chloride 102 (96-108) mmol/L Carbon Dioxide 29 (22-29) mmol/L Anion Gap 12 (12-20) BUN 16 (9-16) mg/dL Creatinine 0.90 (0.5-1.4) mg/dL Estim Creat Clear Calc 45.7 Estimated GFR > 60 Random Glucose 108 (60-115) mg/dL Calcium 9.6 (8.4-10.2) mg/dL Total Bilirubin 0.2 (0.0-1.0) mg/dL AST 18 (5-31) U/L ALT 14 (0-31) U/L Alkaline Phosphatase 65 (39-117) U/L Total Protein 6.9 (6.5-8.0) g/dL Albumin 4.2 (3.5-5.0) g/dL Lipase 19 (8-78) U/L Urine Color YELLOW Urine Appearance HAZY Urine pH 6.0 (5.0-8.0) Ur Specific Bowlegs 1.025 (1.005-1.025) Urine Protein NEG (NEG-TRACE) MG/DL Urine Glucose (UA) NEG (NEG) MG/DL Urine Ketones NEG (NEG) MG/DL Urine Blood NEG (NEG) Urine Nitrite NEG (NEG) Ur Leukocyte Esterase NEG (NEG) 02/07/21 Range/Units 14:13 WBC (4.8-10.8) X10*3/uL RBC (4.20-5.50) X10*6/uL Hgb (12.0-16.0) g/dl Hct (37.0-47.0) % MCV (80.0-98.0) fL MCH (27.0-33.0) pg MCHC (31.0-35.0) g/dl RDW (11.0-16.0) % Plt Count (160-400) X10*3/uL MPV (9.4-12.3) fL Immature Gran % (Auto) (0.0-0.4) % Neut % (Auto) (45-73) % Lymph % (Auto) (20-40) % Crockett % (Auto) (2-11) % Eos % (Auto) (0-4) % Baso % (Auto) (0-2) % Lymph # (Auto) (1.2-4.9) X10*3/uL Crockett # (Auto) (0.1-1.2) X10*3/uL Eos # (Auto) (0.0-0.4) X10*3/uL Baso # (Auto) (0.0-0.2) X10*3/uL Abs Immat Gran (auto) (0.00-0.03) X10*3/uL Absolute Neuts (auto) (2.0-8.3) x10*3/uL Absolute Nucleated RBC (0.0-0.012) X10*3/uL Nucleated RBC % (auto) (0.0-0.2) /100WBC PT 41.5 H (9.9-13.0) SEC INR 3.6 H (0.9-1.1) APTT 51.4 H (24.1-38.0) SEC Sodium (135-145) mmol/L Potassium (3.3-5.1) mmol/L Chloride (96-108) mmol/L Carbon Dioxide (22-29) mmol/L Anion Gap (12-20) BUN (9-16) mg/dL Creatinine (0.5-1.4) mg/dL Estim Creat Clear Calc Estimated GFR Random Glucose (60-115) mg/dL Calcium (8.4-10.2) mg/dL Total Bilirubin (0.0-1.0) mg/dL AST (5-31) U/L ALT (0-31) U/L Alkaline Phosphatase (39-117) U/L Total Protein (6.5-8.0) g/dL Albumin (3.5-5.0) g/dL Lipase (8-78) U/L Urine Color Urine Appearance Urine pH (5.0-8.0) Ur Specific Bowlegs (1.005-1.025) Urine Protein (NEG-TRACE) MG/DL Urine Glucose (UA) (NEG) MG/DL Urine Ketones (NEG) MG/DL Urine Blood (NEG) Urine Nitrite (NEG) Ur Leukocyte Esterase (NEG) Imaging Data CT scan abdomen pelvis without IV contrast: Radiologist's impression: IMPRESSION: Dependent increased attenuation in the gallbladder questionable for tiny stones or sludge. The gallbladder is otherwise normal. There is no biliary duct dilatation. ? Diverticulosis of the colon. No evidence of diverticulitis. Normal appendix. Large esophageal hernia or intrathoracic stomach similar to previous exams. ? Severe atherosclerotic disease. 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 This appears unchanged. ? Stable right renal and liver cysts. Dictated By: Trini Nicholson MD Signed By: <Electronically signed by Trini Nicholson MD in OV> 02/07/21 1611 DD/ 1342 Discharge Plan Discharge Clinical Impression: Abdominal pain Patient Disposition: Home, Self-Care Instructions: Abdominal Pain (ED) Additional Instructions: Take Tylenol (acetaminophen) 500 mg pills, 2 pills every 4 to 6 hours as needed for pain. Follow-up with your doctor in 2 days. Please return to the emergency department if your symptoms get worse or if you develop any symptoms that are concerning to you. Prescriptions: No Action amoxicillin-pot clavulanate [Augmentin] 875-125 mg tablet 1 tab PO Q12H Qty: 14 RF: 0 verapamil 240 mg tablet extended release 240 mg PO DAILY RF: 0 simvastatin 20 mg tablet 20 mg PO BEDTIME RF: 0 metoprolol tartrate 25 mg tablet 25 mg PO BID RF: 0 omeprazole 20 mg capsule,delayed release(DR/EC) 20 mg PO DAILY RF: 0 levothyroxine 50 mcg tablet 50 mcg PO DAILY RF: 0 fluticasone propion-salmeterol 250-50 mcg/dose blister with device 1 ea inhalation BID RF: 0 cephalexin 500 mg capsule 500 mg PO Q12H 10 Days Qty: 20 RF: 0 PMFSH Past Medical History [facility] Narrative: Past medical history: COPD, osteoarthritis, rectal bleeding 2 years prior secondary to polyps. Surgical history: [facility] Stefan aortic valve replacement, pacemaker Social History Social History Alcohol intake: never Patient Tobacco Use Status: Never used Tobacco Use of substances other than those prescribed or required for medical reasons: No Advance Directives: No Advance Directives Information Provided: Yes
[2021-02-07 13:58] LABS: Alanine Aminotransferase 14 U/L (0-31); Albumin Level 4.2 g/dL (3.5-5.0); Alkaline Phosphatase 65 U/L (39-117); Anion Gap 12 (12-20); Aspartate Amino Transferase 18 U/L (5-31); Bilirubin Total 0.2 mg/dL (0.0-1.0); Blood Urea Nitrogen 16 mg/dL (9-16); Calcium 9.6 mg/dL (8.4-10.2); Carbon Dioxide 29 mmol/L (22-29); Chloride 102 mmol/L (96-108); Creatinine Clr Calc Pharmacy 45.7; Estimated Glomerular Filt Rate > 60; Glucose Random 108 mg/dL (60-115); Potassium 4.2 mmol/L (3.3-5.1); Sodium 139 mmol/L (135-145); Total Protein 6.9 g/dL (6.5-8.0)
[2021-02-07 14:00] VITALS: BP 185/76; PULSE 70; RESP 18; TEMP 36.7; O2SAT 97
--- NOTE | 2021-02-07 14:00 | PC.NURSE ---
patient a&ox3, iv inserted, labs drawn, vss, will continue to monitor.
[2021-02-07 14:07] LABS: Lipase 19 U/L (8-78)
[2021-02-07 14:21] LABS: Appearance Urine HAZY; Color Urine YELLOW; Glucose Urine UA NEG (NEG); Leukocyte Esterase Urine NEG (NEG); Nitrite Urine NEG (NEG); Specific Gravity - Urine 1.025 (1.005-1.025); Urine Blood NEG (NEG); Urine Ketones NEG (NEG); Urine Protein NEG (NEG-TRACE)
[2021-02-07 14:26] LABS: INTERNATIONAL NORM RATIO 3.6 (0.9-1.1); Prothrombin Time 41.5 SEC (9.9-13.0)
[2021-02-07 14:28] LABS: Partial Thromboplastin Time 51.4 SEC (24.1-38.0)
[2021-02-07 16:00] VITALS: BP 170/67; PULSE 70; RESP 18; TEMP 36.7; O2SAT 95
--- NOTE | 2021-02-07 17:00 | PC.NURSE ---
patient a&ox3, vss, pt awaiting us, pt denies pain/discomfort, will continue to monitor.
[2021-02-07 18:00] VITALS: BP 189/74; PULSE 70; RESP 18; TEMP 36.7; O2SAT 97
--- NOTE | 2021-02-07 18:06 | PC.NURSE ---
patient a&ox3, vss, monitor car operator nsr, call parks within reach, will continue to monitor.
== END 2021-02-07 19:32 | disposition home or self-care (01) ==
PROVIDERS: Emergency Medicine Emergency Medical Services; Emergency Provider Emergency Medicine; PCP Pediatrics
DX: R10.11 Right upper quadrant pain (principal); R10.31 Right lower quadrant pain; Z79.899 Other long term (current) drug therapy
CPT/HCPCS: 36415; 74176; 76705; 80053; 81003; 83690; 85025; 85610; 85730; 99284

== ENCOUNTER 2021-11-12 03:21 | Emergency (ER) | payer MEDICARE, SELFPAY ==
--- NOTE | 2021-11-12 03:30 | ECG_ITS ---
Test Reason : PALPITATIONS Blood Pressure : / mmHG Vent. Rate : 061 BPM Atrial Rate : 061 BPM P-R Int : 194 ms QRS Dur : 184 ms QT Int : 486 ms P-R-T Axes : 025 -29 115 degrees QTc Int : 489 ms AV dual-paced rhythm with occasional Premature ventricular complexes Abnormal ECG When compared with ECG of 19-JUN-2019 11:02, Premature ventricular complexes are now Present Vent. rate has decreased BY 33 BPM Referred By: Generic ED Physician Electronically Signed By:MAKI PARKER
[2021-11-12 03:59] VITALS: BP 171/71; PULSE 56; RESP 18; O2SAT 97; BMI 28.5
--- NOTE | 2021-11-12 04:04 | PC.NURSE ---
pt a&o, EkG and labs completed. Will continue to monitor.
[2021-11-12 04:05] LABS: Hematocrit 35.9 % (37.0-47.0); Hemoglobin 11.7 g/dl (12.0-16.0); Mean Corpuscular HGB Conc 32.6 g/dl (31.0-35.0); Mean Corpuscular Hemoglobin 28.2 pg (27.0-33.0); Mean Corpuscular Volume 86.5 fL (80.0-98.0); Platelet Count 256 X10*3/uL (160-400); Red Blood Count 4.15 X10*6/uL (4.20-5.50); White Blood Count 7.4 X10*3/uL (4.8-10.8)
[2021-11-12 04:33] LABS: Alanine Aminotransferase 12 U/L (0-31); Alkaline Phosphatase 68 U/L (39-117); Anion Gap 17 (12-20); Aspartate Amino Transferase 18 U/L (5-31); Bilirubin Total 0.3 mg/dL (0.0-1.0); Blood Urea Nitrogen 21 mg/dL (9-16); Calcium 9.5 mg/dL (8.4-10.2); Carbon Dioxide 25 mmol/L (22-29); Chloride 105 mmol/L (96-108); Creatinine Clr Calc Pharmacy 66.2; Estimated Glomerular Filt Rate > 60; Glucose Random 100 mg/dL (60-115); Potassium 3.7 mmol/L (3.3-5.1); Sodium 143 mmol/L (135-145); Total Protein 6.8 g/dL (6.5-8.0)
--- NOTE | 2021-11-12 11:41 | ED_ITS ---
HPI - General Adult General Chief complaint: Arrhythmia/Palpitations Stated complaint: irregular heartbeat Time Seen by Provider: 11/12/21 11:41 Source: patient and family () Mode of arrival: ambulatory Limitations: no limitations History of Present Illness HPI narrative: Patient is a 76 year old female with a history of COPD and dual pacemaker presenting to the emergency department today with an irregular heart beat. Patient states that 3 weeks ago, her drop wire stringer contacted her and informed her that he had seen an episode of extra beats on her pacemaker report. She states that at that time, he increased her Metoprolol to 50mg. She states that shortly after that, she began to feel much more tired and had an increase in her wheezing. She states that the drop wire stringer decreased her medication back down to 25. Patient states that the wheezing got so bad, she went to an Urgent Care 2 d ays ago where that provider gave her Prednisone, 40mg with no taper. Patient states that she feels as though her heart rate is getting worse again after starting the Prednsione. Patient denies any current dizziness, lightheadedness, abdominal pain, nausea, vomiting, fever, chills, blurry vision, double vision, loss of vision, chest pain, difficulty breathing, shortness of breath, back pain, night sweats, pain with urination, increased urinary frequency, increased urinary urgency, blood in her urine or stool, syncope or a near syncopal episode, recent trauma or falls, bowel incontinence, bladder incontinence, bowel retention, bladder retention, or any other complaints at this time. Onset (ago): hour(s) Severity: mild Severity scale (1-10): 1 Relieving factors: none Exacerbating factors: none Associated symptoms: denies other symptoms Treatments prior to arrival: none Related Data Home Medications Medication Instructions Recorded Confirmed fluticasone 250 mcg-salmeterol 50 1 ea inhalation BID 10/17/20 11/10/21 mcg/dose blistr powdr for inhalation levothyroxine 50 mcg tablet 50 mcg PO DAILY 10/17/20 11/10/21 metoprolol tartrate 25 mg tablet 25 mg PO BID 10/17/20 11/10/21 omeprazole 20 mg capsule,delayed 20 mg PO DAILY 10/17/20 11/10/21 release simvastatin 20 mg tablet 20 mg PO BEDTIME 10/17/20 11/10/21 verapamil 240 mg tablet,extended 240 mg PO DAILY 10/17/20 11/10/21 release acetaminophen 325 mg tablet 325 mg PO QID PRN 11/10/21 11/10/21 albuterol sulfate 2.5 mg/3 mL 2.5 mg inhalation Q4-6H PRN 11/10/21 11/10/21 (0.083 %) solution for nebulization aspirin 81 mg chewable tablet 81 mg PO DAILY 11/10/21 11/10/21 hydrochlorothiazide 12.5 mg capsule 12.5 mg PO QAM 11/10/21 11/10/21 ketoconazole 2 % topical cream 1 appl topical BID 11/10/21 11/10/21 loratadine 10 mg tablet 10 mg PO DAILY 11/10/21 11/10/21 lorazepam 0.5 mg tablet 0.5 mg PO BID PRN 11/10/21 11/10/21 simvastatin 20 mg tablet 20 mg PO BEDTIME 11/10/21 11/10/21 warfarin 5 mg tablet 5 mg PO DAILY 11/10/21 11/10/21 Previous Rx's Medication Instructions Recorded prednisone 20 mg tablet 40 mg PO DAILY 4 days #8 tabs 11/10/21 Allergies Allergy/AdvReac Type Severity Reaction Status Date / Time Iodinated Contrast Media Allergy Intermediate COUGH Verified 11/10/21 10:47 [IVP DYE] oxycodone [OXYCODONE] AdvReac Mild DIZZINESS Verified 11/10/21 10:47 Review of Systems Constitutional: Constitutional: Reports no additional constitutional complaints, Denies chills, Denies fever(s) and Denies night sweats Eyes: Eyes: Reports no additional eye complaints, Denies blurry vision, Denies change in vision, Denies diplopia, Denies eye discharge, Denies loss of vision and Denies eye pain ENT: Denies dizziness Cardiovascular: Cardiovascular: Reports no additional cardiovascular complaints, Denies chest pain, Reports irregular heart rhythm, Denies lightheadedness, Denies Loss of Consciousness and Denies dyspnea Respiratory: Respiratory: Reports no additional respiratory complaints, Denies dyspnea and Reports wheezing Gastrointestinal: Gastrointestinal: Reports no additional gastrointestinal complaints, Denies abdominal pain, Denies melena, Denies hematochezia, Denies change in bowel habits and Denies change in stool character Genitourinary: Genitourinary: Denies hematuria, Denies urinary frequency, Denies dysuria, Denies urinary incontinence, Denies urinary hesitancy and Denies urinary urgency Musculoskeletal: Musculoskeletal: Reports no additional musculoskeletal complaints, Denies numbness and Denies tingling Neurologic: Denies dizziness, Denies loss of vision, Denies numbness and Denies tingling Psychiatric: Psychiatric: Reports no additional psychiatric complaints Endocrine: Endocrine: Reports no additional endocrine complaints Hematologic/Lymphatic: Hematologic/Lymphatic: Reports no additional hematologic/lymphatic complaints Allergic/Immunologic: Allergic/Immunologic: Reports no additional allergic/immunologic complaints and Reports wheezing PMFSH Past Medical History Attestation statement: The following information was validated with the patient. Source: old records reviewed Social History Social History Alcohol intake: never Patient Tobacco Use Status: Never used Tobacco Advance Directives: No Advance Directives Information Provided: No Physical Exam ED Vital Signs: Vital Signs - 24 hr 11/12/21 03:59 Pulse Rate 56 Respiratory Rate 18 Blood Pressure 171/71 H Pulse Oximetry 97 Oxygen Delivery Method Room Air BMI result Body Mass Index 28.5 Const General: cooperative, no acute distress, alert and awake Nutritional Appearance: well nourished Orientation/consciousness: patient oriented x3 Limitations: no limitations HENMT Head: Yes normal to inspection and Yes atraumatic Ears: hearing grossly normal bilaterally and external ears normal General nose exam: Normal external nose present, no nasal discharge noted and no epistaxis Face and sinus: Yes normal facial exam, No abrasion and No laceration Mouth: Normal oral and palatal mucosa present, no drooling and no muffled voice Eyes General: appearance normal, both eyes and all related structures Periorbital: periorbital findings normal Eyelids: Yes eyelids normal Conjunctivae: conjunctivae normal Pupils: Equal, round and reactive pupils present EOM: EOMs intact bilaterally Neck Neck: Yes normal visual inspection, Yes full ROM and Yes no lymphadenopathy Chest Chest palpation & inspection: normal inspection of the chest Resp Effort & Inspection: normal respiratory effort and able to speak in complete sentences Auscultation: clear to auscultation bilaterally Cardio Rate: bradycardic Rhythm: regular rhythm Heart sounds: Other heart sounds present (pacemaker) GI Inspection: Yes normal to inspection Neuro General: patient oriented x3 and moves all extremities Cranial nerves: Yes Equal, round and reactive pupils present Cognition (Neuro): normal cognition Motor exam (neuro): 5/5 motor strength present throughout Sensory Exam: Normal double simultaneous stimulation for sensation Coordination: [id number] test normal Extrem General: Yes normal to inspection, Yes full ROM and Yes capillary refill normal Psych Appearance: grossly normal Mental Status: mental status grossly normal Affect: normal affect Attitude: cooperative Thought process: Normal thought process present Thought content: Normal thought content present Insight: Good insight present (Psych) Medical Decision Making MDM Narrative Medical decision making narrative: Patient is a 76 year old female presenting to the emergency department today with an irregular heartbeat. Patient's physical exam showed a paced rhythm but was otherwise unremarkable. Patient's blood work was unremarkable. Patient's EKG showed sinus bradycardia with a PVC. I explained my physical exam findings as well as all test results to the patient and the patient's . I answered all questions asked by the patient and the patient's . I explained to the patient that the Prednisone is likely contributing to her increase in PVCs and that she should begin to taper down on it now that the wheezing has resolved. I instructed the patient to take 20mg of Prednisone today then drop down to 10mg the next 2 days and follow up with both her PCP and her Hog Room Supervisor. I stressed the importance of the patient taking her medication as prescribed. I stressed the importance of the patient following up with her primary care provider and drop wire stringer. I stressed the importance of the [facility] if her symptoms were to worsen or if she were to develop any dizziness, shortness of breath, difficulty breathing, chest pain, blurry vision, loss of vision, nausea, vomiting, abdominal pain, fever, chills, back pain, or any other complaints. Patient and the patient's verbalized agreement and understanding with this treatment plan and discharge. Differential Diagnosis Differential Diagnosis: PVCs Medical Records Medical records reviewed: Yes I reviewed the patient's medical records. Lab Data Lab results reviewed: Yes I reviewed the patient's lab results. Result diagrams: 11/12/21 04:01 11/12/21 04:01 Labs: Lab Results 11/12/21 11/12/21 11/12/21 Range/Units 04:01 04:01 04:01 WBC 7.4 (4.8-10.8) X10*3/uL RBC 4.15 L (4.20-5.50) X10*6/uL Hgb 11.7 L (12.0-16.0) g/dl Hct 35.9 L (37.0-47.0) % MCV 86.5 (80.0-98.0) fL MCH 28.2 (27.0-33.0) pg MCHC 32.6 (31.0-35.0) g/dl RDW 14.0 (11.0-16.0) % Plt Count 256 (160-400) X10*3/uL MPV 9.0 L (9.4-12.3) fL Absolute Nucleated RBC 0.000 (0.0-0.012) X10*3/uL Nucleated RBC % (auto) 0.0 (0.0-0.2) /100WBC Sodium 143 (135-145) mmol/L Potassium 3.7 (3.3-5.1) mmol/L Chloride 105 (96-108) mmol/L Carbon Dioxide 25 (22-29) mmol/L Anion Gap 17 (12-20) BUN 21 H (9-16) mg/dL Creatinine 0.80 (0.5-1.4) mg/dL Estim Creat Clear Calc 66.2 Estimated GFR > 60 Random Glucose 100 (60-115) mg/dL Calcium 9.5 (8.4-10.2) mg/dL Total Bilirubin 0.3 (0.0-1.0) mg/dL AST 18 (5-31) U/L ALT 12 (0-31) U/L Alkaline Phosphatase 68 (39-117) U/L Troponin I High Sens 6.0 (<3.5-17.0) ng/L Total Protein 6.8 (6.5-8.0) g/dL Albumin 4.0 (3.5-5.0) g/dL ECG Data Attestation: I personally reviewed and interpreted this ECG as follows: Prior ECG tracings: available for review Interpretation: Vent. Rate: 061 BPM ? ? Atrial Rate: 061 BPM P-R Int: 194 ms? QRS Dur: 184 ms QT Int: 486 ms ? ? ? P-R-T Axes: 025 -29 115 degrees QTc Int: 489 ms ? AV dual-paced rhythm with occasional Premature ventricular complexes Abnormal ECG When compared with ECG of 27-MAR-2020 11:02, Premature ventricular complexes are now Present Vent. rate has decreased BY? 33 BPM DD/ [id number] Discharge Plan Discharge Clinical Impression: Premature beat Patient Disposition: Home, Self-Care Instructions: Premature Ventricular Contractions (ED) Additional Instructions: Take 20mg of your Prednisone dose today THEN; drop down to 10mg of Prednisone tomorrow and the next day. Follow up with your primary care provider and drop wire stringer. Return to the emergency department immediately if your symptoms worsen or if you develop any dizziness, shortness of breath, difficulty breathing, chest pain, blurry vision, loss of vision, nausea, vomiting, abdominal pain, fever, chills, back pain, or any other complaints. Prescriptions: No Action verapamil 240 mg tablet extended release 240 mg PO DAILY simvastatin 20 mg tablet 20 mg PO BEDTIME metoprolol tartrate 25 mg tablet 25 mg PO BID omeprazole 20 mg capsule,delayed release(DR/EC) 20 mg PO DAILY levothyroxine 50 mcg tablet 50 mcg PO DAILY fluticasone propion-salmeterol 250-50 mcg/dose blister with device 1 ea inhalation BID acetaminophen 325 mg tablet 325 mg PO QID PRN albuterol sulfate 2.5 mg /3 mL (0.083 %) solution for nebulization 2.5 mg inhalation Q4-6H PRN aspirin 81 mg tablet,chewable 81 mg PO DAILY hydrochlorothiazide 12.5 mg capsule 12.5 mg PO QAM ketoconazole 2 % cream 1 appl topical BID lorazepam 0.5 mg tablet 0.5 mg PO BID PRN warfarin 5 mg tablet 5 mg PO DAILY simvastatin 20 mg tablet 20 mg PO BEDTIME loratadine 10 mg tablet 10 mg PO DAILY prednisone 20 mg tablet 40 mg PO DAILY 4 Days Qty: 8 0RF Referrals: [facility] [place] Family Medicine [Provider Group] (Call to establish and follow up with a primary care provider. If you already have a primary care provider, please follow up with them. ) [facility] [place] [facility] [Provider Group] (Call to establish and follow up with a primary care provider. If you already have a primary care provider, please follow up with them. ) [facility] [place] [facility] [Provider Group] (Call to establish and follow up with a primary care provider. If you already have a primary care provider, please follow up with them. ) Print Language: Georgian
[2021-11-12 12:09] VITALS: BP 187/85; PULSE 70; RESP 14; TEMP 36.6; O2SAT 95
== END 2021-11-12 12:22 | disposition home or self-care (01) ==
PROVIDERS: Emergency Provider Emergency Medicine
DX: R00.2 Palpitations (principal); J44.9 Chronic obstructive pulmonary disease, unspecified; I49.40 Unspecified premature depolarization; Z79.899 Other long term (current) drug therapy
CPT/HCPCS: 36415; 80053; 84484; 85027; 93005; 99282; 99283